=== PATIENT | male | born 1980 | race Caucasian/White ===

== ENCOUNTER 2017-01-06 20:23 | Emergency (ER) | payer OTHER ==
[~2017-01-06] VITALS: Ht 177.8 cm; Wt 63.5 kg
[2017-01-06] MEDS ORDERED: NICOTINE 21MG/24HR 1 EA TRANSDERMAL TD ONE (22:45)
[2017-01-06] MEDS ORDERED: LORazepam 1 MG TAB PO ONE (22:45)
[2017-01-06 23:12] LABS: MEAN CORPUSCULAR HEMOGLOBIN 33.7 pg (27.0-33.0); MEAN CORPUSCULAR HGB CONC 35.1 g/dl (32.0-36.5); MEAN CORPUSCULAR VOLUME 96.1 fl (80.0-96.0); RED CELL DISTRIBUTION WIDTH 12.6 % (11.5-14.5); WHITE BLOOD COUNT 7.8 K/mm3 (4.0-10.0)
[2017-01-06 23:22] LABS: CONTROL LINE INT CTR LINE PRESENT; METHADONE URINE NEGATIVE (NEGATIVE); TRICYCLIC ANTIDEPRESS URINE NEGATIVE (NEGATIVE)
[2017-01-06 23:42] LABS: ALBUMIN 4.4 GM/DL (3.2-5.2); ALBUMIN/GLOBULIN RATIO 1.42 (1.00-1.93); ALKALINE PHOSPHATASE 58 U/L (45-117); ALT/SGPT 18 U/L (12-78); ANION GAP 9 MEQ/L (8-16); AST/SGOT 15 U/L (15-37); BILIRUBIN,DIRECT 0.2 MG/DL (0.0-0.2); BILIRUBIN,TOTAL 0.7 MG/DL (0.2-1.0); BLOOD UREA NITROGEN 12 MG/DL (7-18); CALCIUM LEVEL 9.3 MG/DL (8.5-10.1); CARBON DIOXIDE LEVEL 23 MEQ/L (21-32); CHLORIDE LEVEL 105 MEQ/L (98-107); CREATININE FOR GFR 1.07 MG/DL (0.70-1.30); GLOMERULAR FILTRATION RATE > 60.0 (>60); GLUCOSE, FASTING 106 MG/DL (70-105); POTASSIUM SERUM 3.9 MEQ/L (3.5-5.1); SODIUM LEVEL 137 MEQ/L (136-145); TOTAL PROTEIN 7.5 GM/DL (6.4-8.2)
[2017-01-07 01:45] VITALS: BP 151/105
== END 2017-01-07 02:07 | disposition home or self-care (01) ==
LOC: M ED 21:51
DX: F43.0 Acute stress reaction (principal); F17.210 Nicotine dependence, cigarettes, uncomplicated; M19.90 Unspecified osteoarthritis, unspecified site; F41.9 Anxiety disorder, unspecified; F32.9 Major depressive disorder, single episode, unspecified; F22 Delusional disorders
CPT/HCPCS: 36415; 80048; 80076; 80306; 84443; 85027; 99285; G0480

== ENCOUNTER → 2017-04-16 | Outpatient (CLI) | payer OTHER | LOC: M OUTALCOH 09:25 | PROVIDERS: ATTEND Psychiatry & Neurology Psychiatry | DX: E13.9 Other specified diabetes mellitus without complications (principal); F10.20 Alcohol dependence, uncomplicated; F12.20 Cannabis dependence, uncomplicated ==

== ENCOUNTER → 2017-04-30 | Outpatient (CLI) | payer OTHER | LOC: M OUTALCOH 09:12 | PROVIDERS: ATTEND Psychiatry & Neurology Psychiatry | DX: Z13.9 Encounter for screening, unspecified (principal); F12.20 Cannabis dependence, uncomplicated; F10.20 Alcohol dependence, uncomplicated ==

== ENCOUNTER 2017-05-06 08:00 | Outpatient (RCR) | payer OTHER | END 2017-05-07 | LOC: M OUTALCOH 08:00 | PROVIDERS: ATTEND Psychiatry & Neurology Psychiatry | DX: F10.20 Alcohol dependence, uncomplicated (principal); F12.20 Cannabis dependence, uncomplicated; F17.200 Nicotine dependence, unspecified, uncomplicated ==

== ENCOUNTER → 2017-06-07 | Outpatient (RCR) | payer OTHER ==
[~2017-06-07] MED LIST: FLUO20CA19; NALT50TA4; TIGA300C2 PO; ZYPR15TA
== END ==
LOC: M OUTALCOH 05-13 15:00
PROVIDERS: ATTEND Psychiatry & Neurology Psychiatry
DX: F10.20 Alcohol dependence, uncomplicated (principal); F12.20 Cannabis dependence, uncomplicated; F17.200 Nicotine dependence, unspecified, uncomplicated

== ENCOUNTER 2017-07-01 09:52 | Emergency (ER) | payer OTHER ==
[~2017-07-01] VITALS: Ht 177.8 cm; Wt 77.3 kg
[2017-07-01] MEDS ORDERED: NALT50TA4 (09:59)
[2017-07-01] MEDS ORDERED: FLUO20CA19 (09:59)
[2017-07-01] MEDS ORDERED: ZYPR15TA (09:59)
[2017-07-01] MEDS ORDERED: KETOROLAC 30 MG/ML VIAL (J1885) IV ONE (10:15)
[2017-07-01] MEDS ORDERED: NS 1,000 ML IV ONE (10:15)
[2017-07-01] MEDS ORDERED: TRIMETHOBENZAMIDE HCL INJ 200 MG/2 ML VIAL (J3250) IM ONE (10:15)
[2017-07-01] MEDS ORDERED: diphenhydrAMINE INJ 50MG/ML VIAL (J1200) IV ONE (10:15)
[2017-07-01 10:45] LABS: BASO % 0.3 % (0.0-1.0); EOS % 0.5 % (0.0-3.0); LARGE UNSTAINED CELL # 0.1 K/mm3 (0.0-0.4); LYMPH # 1.4 K/mm3 (1.5-4.5); LYMPH % 13.1 % (24.0-44.0); MEAN CORPUSCULAR HEMOGLOBIN 34.2 pg (27.0-33.0); MEAN CORPUSCULAR HGB CONC 36.2 g/dl (32.0-36.5); MEAN CORPUSCULAR VOLUME 94.7 fl (80.0-96.0); MONO # 0.5 K/mm3 (0.0-0.8); MONO % 4.9 % (0.0-5.0); NEUTROPHILS # 7.9 K/mm3 (1.8-7.7); NEUTROPHILS % 80.1 % (36.0-66.0); PLATELET COUNT, AUTOMATED 244 k/mm3 (150-450); RED CELL DISTRIBUTION WIDTH 13.3 % (11.5-14.5); WHITE BLOOD COUNT 9.9 K/mm3 (4.0-10.0)
[2017-07-01 11:11] LABS: ALBUMIN 4.2 GM/DL (3.2-5.2); ALKALINE PHOSPHATASE 64 U/L (45-117); ALT/SGPT 63 U/L (12-78); AMYLASE 52 U/L (25-115); ANION GAP 10 MEQ/L (8-16); AST/SGOT 36 U/L (15-37); BILIRUBIN,TOTAL 0.3 MG/DL (0.2-1.0); BLOOD UREA NITROGEN 14 MG/DL (7-18); CALCIUM LEVEL 9.3 MG/DL (8.5-10.1); CARBON DIOXIDE LEVEL 22 MEQ/L (21-32); CHLORIDE LEVEL 104 MEQ/L (98-107); CREATININE FOR GFR 0.84 MG/DL (0.70-1.30); GLOMERULAR FILTRATION RATE > 60.0 (>60); GLUCOSE, FASTING 124 MG/DL (70-105); SODIUM LEVEL 136 MEQ/L (136-145); TOTAL PROTEIN 7.7 GM/DL (6.4-8.2)
[2017-07-01] MEDS ORDERED: TIGA300C2 PO (11:27)
[2017-07-01 11:32] VITALS: BP 151/94
== END 2017-07-01 11:39 | disposition home or self-care (01) ==
LOC: M ED 09:52
DX: R51 Headache (principal)
CPT/HCPCS: 80053; 82150; 83690; 85025; 96372; 96374; 96375; 99283; J1200; J1885; J3250

== ENCOUNTER 2017-07-07 08:45 | Outpatient (RCR) | payer OTHER | END 2017-07-08 | LOC: M OUTALCOH 08:45 | PROVIDERS: ATTEND Psychiatry & Neurology Psychiatry | DX: F10.20 Alcohol dependence, uncomplicated (principal); F12.20 Cannabis dependence, uncomplicated; F17.200 Nicotine dependence, unspecified, uncomplicated ==

== ENCOUNTER 2017-08-06 09:00 | Outpatient (RCR) | payer OTHER | END 2017-08-07 | LOC: M OUTALCOH 09:00 | PROVIDERS: ATTEND Psychiatry & Neurology Psychiatry | DX: F10.20 Alcohol dependence, uncomplicated (principal); F12.20 Cannabis dependence, uncomplicated; F17.200 Nicotine dependence, unspecified, uncomplicated ==

== ENCOUNTER 2017-10-06 15:00 | Outpatient (RCR) | payer OTHER | END 2017-10-07 | LOC: M OUTALCOH 15:00 | PROVIDERS: ATTEND Psychiatry & Neurology Psychiatry | DX: F10.20 Alcohol dependence, uncomplicated (principal); F12.20 Cannabis dependence, uncomplicated; F17.200 Nicotine dependence, unspecified, uncomplicated ==

== ENCOUNTER 2017-10-19 16:00 | Outpatient (RCR) | payer OTHER | END 2017-11-07 | LOC: M OUTALCOH 10-28 16:00 | DX: F10.20 Alcohol dependence, uncomplicated (principal); F12.20 Cannabis dependence, uncomplicated; F17.200 Nicotine dependence, unspecified, uncomplicated | CPT/HCPCS: 90834 ==

== ENCOUNTER 2017-12-21 14:24 | Outpatient (RCR) | payer OTHER | END 2018-01-05 | LOC: M OUTALCOH 01-05 15:07 | DX: F10.20 Alcohol dependence, uncomplicated (principal); F12.20 Cannabis dependence, uncomplicated; F17.200 Nicotine dependence, unspecified, uncomplicated | CPT/HCPCS: 90834 ==

== ENCOUNTER 2018-01-06 14:19 | Outpatient (RCR) | payer OTHER | END 2018-02-05 | LOC: M OUTALCOH 14:19 | DX: F10.20 Alcohol dependence, uncomplicated (principal); F12.20 Cannabis dependence, uncomplicated; F17.200 Nicotine dependence, unspecified, uncomplicated | CPT/HCPCS: 90834 ==

== ENCOUNTER 2018-01-11 10:43 | Emergency (ER) | payer OTHER | END 2018-01-11 12:20 | disposition left against medical advice (07) | LOC: M ED 10:43 | DX: F99 Mental disorder, not otherwise specified (principal); Z53.21 Procedure and treatment not carried out due to patient leaving prior to being seen by health care provider ==

== ENCOUNTER 2018-02-09 16:00 | Outpatient (RCR) | payer OTHER | END 2018-03-07 | LOC: M OUTALCOH 02-16 16:00 | DX: F10.20 Alcohol dependence, uncomplicated (principal); F12.20 Cannabis dependence, uncomplicated; F17.200 Nicotine dependence, unspecified, uncomplicated | CPT/HCPCS: 90834 ==

== ENCOUNTER 2018-03-25 15:28 | Outpatient (RCR) | payer OTHER | END 2018-04-07 | LOC: M OUTALCOH 04-01 10:00 | DX: F10.20 Alcohol dependence, uncomplicated (principal); F12.20 Cannabis dependence, uncomplicated; F17.200 Nicotine dependence, unspecified, uncomplicated | CPT/HCPCS: 90834 ==

== ENCOUNTER 2018-04-15 11:05 | Outpatient (RCR) | payer OTHER | END 2018-05-07 | LOC: M OUTALCOH 04-29 10:00 | DX: F10.20 Alcohol dependence, uncomplicated (principal); F12.20 Cannabis dependence, uncomplicated; F17.200 Nicotine dependence, unspecified, uncomplicated | CPT/HCPCS: 90834 ==

== ENCOUNTER 2018-05-13 11:43 | Outpatient (RCR) | payer OTHER | END 2018-06-07 | LOC: M OUTALCOH 05-31 10:00 | DX: F10.20 Alcohol dependence, uncomplicated (principal); F17.200 Nicotine dependence, unspecified, uncomplicated; F12.20 Cannabis dependence, uncomplicated | CPT/HCPCS: 90834 ==

== ENCOUNTER 2018-07-22 10:39 | Outpatient (RCR) | payer OTHER | END 2018-08-07 | LOC: M OUTALCOH 10:39 | DX: F10.20 Alcohol dependence, uncomplicated (principal); F17.200 Nicotine dependence, unspecified, uncomplicated; F12.20 Cannabis dependence, uncomplicated | CPT/HCPCS: 90832 ==

== ENCOUNTER 2018-08-15 14:41 | Outpatient (RCR) | payer OTHER | END 2018-09-07 | LOC: M OUTALCOH 09-02 11:00 | DX: F10.20 Alcohol dependence, uncomplicated (principal); F17.200 Nicotine dependence, unspecified, uncomplicated; F12.20 Cannabis dependence, uncomplicated | CPT/HCPCS: 90834 ==

== ENCOUNTER 2021-04-20 09:49 | Emergency (ER) | payer OTHER ==
[~2021-04-20] VITALS: Ht 177.8 cm; Wt 90.9 kg
[~2021-04-20 09:49] MED LIST changes: -FLUO20CA19; +FLUO20CA22; +LIPI80TA
[2021-04-20] MEDS ORDERED: ZOLO100T PO (09:58)
[2021-04-20] MEDS ORDERED: RISP-11 PO (09:58)
[2021-04-20] MEDS ORDERED: LEVALBUTEROL HFA 45MCG/ACT 15 GM INHALER INH PRN (11:20)
[2021-04-20] MEDS ORDERED: LIDOCAINE 5% (LIDODERM) PATCH TD ONE (11:20)
[2021-04-20] MEDS ORDERED: KETOROLAC 60MG 2ML VIAL IM ONE (11:20)
[2021-04-20] MEDS ORDERED: methocarbamoL 750 MG TAB PO ONE (11:20)
--- NOTE | 2021-04-20 12:27 | REP ---
INDICATION: wheezing. COMPARISON: Comparison chest x-ray June 29, 2009. TECHNIQUE: Two views.. FINDINGS: There is a zone of linear density in the left perihilar region consistent with platelike atelectasis. Lung westfall are otherwise clear. The pleural angles are sharp. Heart size is normal. The pulmonary vasculature is not increased. No acute bony abnormality. IMPRESSION: Platelike atelectasis left perihilar region. Otherwise no active disease. <Electronically signed by Serg Sosa > 04/20/21 [id number]
[2021-04-20] MEDS ORDERED: PERCOCET 5MG/325MG TAB PO ONE (13:05)
[2021-04-20 13:08] LABS: BASO # 0.1 10^3/uL (0.0-0.2); BASO % 0.5 % (0.0-1.0); EOS % 0.2 % (0.0-3.0); HEMATOCRIT 49.1 % (42.0-52.0); HEMOGLOBIN 16.8 g/dl (13.5-17.5); LYMPH # 1.6 10^3/uL (1.5-5.0); LYMPH % 16.9 % (24.0-44.0); MEAN CORPUSCULAR HEMOGLOBIN 34.7 pg (27.0-33.0); MEAN CORPUSCULAR HGB CONC 34.2 g/dl (32.0-36.5); MEAN CORPUSCULAR VOLUME 101.4 fl (80.0-96.0); MONO # 0.8 10^3/uL (0.0-0.8); NEUTROPHILS # 6.8 10^3/uL (1.5-8.5); NEUTROPHILS % 72.8 % (36.0-66.0); PLATELET COUNT, AUTOMATED 194 10^3/uL (150-450); RED BLOOD COUNT 4.84 10^6/uL (4.30-6.10); WHITE BLOOD COUNT 9.4 10^3/uL (4.0-10.0)
[2021-04-20] MEDS ORDERED: ISOVUE-370 76% 100ML VIAL As Ordered ONE (13:26)
[2021-04-20 13:41] VITALS: BP 144/96
--- NOTE | 2021-04-20 14:18 | REP ---
INDICATION: pain with deep breaths/sob. COMPARISON: Comparison is made with today's chest x-ray.. TECHNIQUE: Contrast dose: 75 ML of Isovue [address] technique: Helical scanning is acquired and overlapping 1.5 mm and contiguous 3 mm axial images are reformatted. In addition, maximum intensity projection and multiplanar re-formation images are generated in sagittal and coronal imaging projections. FINDINGS: There is good opacification in the pulmonary arterial tree. There is no evidence of vessel cut off or filling defect to suggest pulmonary embolus. Homogeneous opacity is seen in the thoracic aorta. There is no evidence of aortic dissection. The ascending aorta however is somewhat dilated measuring 4.4 cm in AP dimension at the level of the right main pulmonary artery. Lung window settings demonstrate a band of platelike atelectasis in the left upper lobe. Lung westfall are otherwise clear. There is no evidence of pleural effusion or pericardial effusion. No hilar or mediastinal mass or adenopathy is seen. In the upper abdomen, there is moderate diffuse fatty infiltration of the liver and the liver appears prominent in size although it is not completely included in the imaging field of view. Normal adrenal glands are seen. Spleen does not appear to be enlarged. The visualized upper abdominal structures are otherwise unremarkable. IMPRESSION: No CT evidence of pulmonary embolus. Dilated ascending aorta, 4.4 cm in anteroposterior dimension. Platelike atelectasis left upper lobe. Moderate fatty infiltration of the liver diffusely. Possible hepatomegaly <Electronically signed by Serg Sosa > 04/20/21 [id number]
[2021-04-20 15:18] LABS: CK-MB VALUE MASS < 1.0 NG/ML (<3.6); CPK CREATINE PHOSPHOKINASE 68 U/L (39-308); MB/CK RELATIVE INDEX 1.47 (< OR =4); TROPONIN I < 0.02 NG/ML (< 0.10)
[2021-04-20] MEDS ORDERED: PERC5TAB12 PO (16:08)
[2021-04-20] MEDS ORDERED: METH-1164 PO (16:09)
[2021-04-20] MEDS ORDERED: LIDO5DIS41 TOP (18:46)
[2021-04-20] MEDS ORDERED: **NOTE PATIENT COMMENT** MISC XX ONE (23:00)
--- NOTE | 2021-04-21 14:07 | ED PDOC ---
Post-Departure Follow-Up cta chest faxed to [facility] for fu Javi Gallardo MD Apr 21, 2021 14:07
--- NOTE | 2021-04-21 16:56 | ECGEPIP ---
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
== END 2021-04-20 16:22 | disposition home or self-care (01) ==
LOC: M ED 09:49
DX: I77.819 Aortic ectasia, unspecified site (principal); M54.6 Pain in thoracic spine; R00.2 Palpitations; E78.5 Hyperlipidemia, unspecified; F17.210 Nicotine dependence, cigarettes, uncomplicated; Z79.899 Other long term (current) drug therapy
CPT/HCPCS: 36415; 71046; 71275; 80047; 82550; 82553; 84484; 85025; 85652; 86140; 93005; 94640; 96372; 99284; J1885; Q9967

== ENCOUNTER 2022-07-13 10:59 | Emergency (ER) | payer OTHER ==
[~2022-07-13] VITALS: Ht 177.8 cm; Wt 81.8 kg
[2022-07-13 10:59] VITALS: BP 141/107
[~2022-07-13 10:59] MED LIST changes: +LIDO5DIS41 TOP; +METH-1164 PO; +PERC5TAB12 PO; +RISP-11 PO; +ZOLO100T PO
== END 2022-07-13 11:33 | disposition left against medical advice (07) ==
LOC: M ED 10:59
DX: Z53.29 Procedure and treatment not carried out because of patient's decision for other reasons (principal)

== ENCOUNTER 2022-12-30 20:35 | Inpatient (IN) | payer OTHER ==
[~2022-12-30] VITALS: Ht 177.8 cm; Wt 90.9 kg
[2022-12-30] MEDS ORDERED: diphenhydrAMINE 50MG/ML VIAL As Ordered ONE (20:43)
[2022-12-30] MEDS ORDERED: HALOPERIDOL 5MG/ML 1ML VIAL As Ordered ONE (20:44)
[2022-12-30] MEDS ORDERED: LORazepam 2 MG/ML 1ML VIAL IM STA (20:44)
[2022-12-30] MEDS ORDERED: HALOPERIDOL 5MG/ML 1ML VIAL IM ONE (20:45)
[2022-12-30] MEDS ORDERED: LORazepam 2 MG/ML 1ML VIAL As Ordered ONE (20:45)
[2022-12-30] MEDS ORDERED: diphenhydrAMINE 50MG/ML VIAL IM ONE (20:45)
[2022-12-30 22:04] LABS: HEMATOCRIT 45.7 % (42.0-52.0); HEMOGLOBIN 16.1 g/dl (13.5-17.5); MEAN CORPUSCULAR HEMOGLOBIN 34.1 pg (27.0-33.0); MEAN CORPUSCULAR HGB CONC 35.2 g/dl (32.0-36.5); MEAN CORPUSCULAR VOLUME 96.8 fl (80.0-96.0); PLATELET COUNT, AUTOMATED 255 10^3/uL (150-450); RED BLOOD COUNT 4.72 10^6/uL (4.30-6.10); WHITE BLOOD COUNT 9.7 10^3/uL (4.0-10.0)
[2022-12-30 22:30] LABS: ETHYL ALCOHOL (ETHANOL) 0.249 % (0.000-0.010)
[2022-12-30 22:32] LABS: ALBUMIN 3.9 G/DL (3.2-5.2); ALKALINE PHOSPHATASE 78 U/L (46-116); ALT/SGPT 17 U/L (7.0-40); AST/SGOT 25 U/L (<34); BILIRUBIN,DIRECT 0.1 MG/DL (<0.4); BILIRUBIN,TOTAL 0.5 MG/DL (0.3-1.2); BLOOD UREA NITROGEN 7 MG/DL (9-23); CARBON DIOXIDE LEVEL 22 MMOL/L (20-31); CHLORIDE LEVEL 105 MMOL/L (98-107); CREATININE FOR GFR 0.88 MG/DL (0.70-1.30); GLOMERULAR FILTRATION RATE > 60.0 (>60); GLUCOSE, FASTING 105 MG/DL (60-100); POTASSIUM SERUM 3.8 MMOL/L (3.5-5.1); SALICYLATE LEVEL < 3.0 MG/DL (<30); SODIUM LEVEL 142 MMOL/L (136-145); TOTAL PROTEIN 6.8 G/DL (5.7-8.2)
[2022-12-30 22:33] LABS: ACETAMINOPHEN LEVEL < 2.0 UG/ML (10.0-20.0)
[2022-12-30 22:34] LABS: THYROID STIMULATING HORMONE 6.047 uIU/ML (0.55-4.78)
[2022-12-31] MEDS ORDERED: LORazepam 2 MG/ML 1ML VIAL IM STA (00:30)
[2022-12-31] MEDS ORDERED: HOME MED LIST COMPLETE! XX SCH (06:40)
[2022-12-31 09:33] LABS: AMPHETAMINES LEVEL URINE NEGATIVE (NEGATIVE); BARBITURATES URINE NEGATIVE (NEGATIVE); BENZODIAZEPINES URINE NEGATIVE (NEGATIVE); COCAINE METABOLITE URINE NEGATIVE (NEGATIVE); METHADONE URINE NEGATIVE (NEGATIVE); OPIATES URINE NEGATIVE (NEGATIVE); PHENCYCLIDINE URINE NEGATIVE (NEGATIVE)
[2022-12-31 09:35] LABS: CANNABINOIDS URINE POSITIVE (NEGATIVE)
[2022-12-31] MEDS ORDERED: NICOTINE 21MG/24HR 1 EA TRANSDERMAL TD ONE (12:20)
[2022-12-31] MEDS: NICOTINE 21MG/24HR 1 EA TRANSDERMAL TD SCH (12:50)
[2022-12-31] MEDS ORDERED: IBUPROFEN 400MG TAB PO PRN (13:55)
[2022-12-31] MEDS ORDERED: traZODone 50 MG TAB PO PRN (13:55)
[2022-12-31] MEDS ORDERED: MOM 30ML SUSPENSION UDC PO PRN (13:55)
[2022-12-31] MEDS ORDERED: MAALOX 30 ML SUSP *UDC PO PRN (13:55)
[2022-12-31] MEDS: LORazepam 2 MG TAB PO PRN ×2 (14:10→16:16)
[2022-12-31 16:10] VITALS: BP 170/100
[2022-12-31 16:11] VITALS: BP 170/100
[2022-12-31] MEDS: FOLIC ACID 1MG TAB PO SCH (16:16)
[2022-12-31] MEDS: diphenhydrAMINE 25MG CAP PO PRN (16:16)
[2022-12-31] MEDS: THIAMINE 100 MG TAB PO SCH ×2 (16:17→21:00)
[2022-12-31] MEDS: MULTIVITAMINS/MINERALS THERAP 1 TAB PO SCH (16:17)
[2022-12-31 18:15] VITALS: BP 142/100
[2022-12-31] MEDS ORDERED: ACETAMINOPHEN TAB 650MG DOSE (2X325MG) PO PRN (21:20)
[2023-01-01 05:41] VITALS: BP 142/86
[2023-01-01 05:43] VITALS: BP 142/86
[2023-01-01] MEDS: FOLIC ACID 1MG TAB PO SCH (07:51)
[2023-01-01] MEDS: MULTIVITAMINS/MINERALS THERAP 1 TAB PO SCH (07:51)
[2023-01-01] MEDS: THIAMINE 100 MG TAB PO SCH (07:51)
[2023-01-01] MEDS: NICOTINE 21MG/24HR 1 EA TRANSDERMAL TD SCH (07:53)
[2023-01-01] MEDS: diphenhydrAMINE 25MG CAP PO PRN (07:55)
[2023-01-01] MEDS ORDERED: LORazepam 1 MG TAB PO STA (08:50)
== END 2023-01-01 12:30 | disposition home or self-care (01) | DRG 882 ==
LOC: M ED 20:35 → M ED INP 12-31 13:52 → M PSY 12-31 15:16
PROVIDERS: ADMIT Psychiatry & Neurology Psychiatry; ATTEND Psychiatry & Neurology Psychiatry
DX: F43.10 Post-traumatic stress disorder, unspecified (principal); F10.24 Alcohol dependence with alcohol-induced mood disorder; R45.851 Suicidal ideations; F10.220 Alcohol dependence with intoxication, uncomplicated; F17.290 Nicotine dependence, other tobacco product, uncomplicated; M25.531 Pain in right wrist; Z78.1 Physical restraint status; Z81.1 Family history of alcohol abuse and dependence; Z20.822 Contact with and (suspected) exposure to COVID-19; Z91.82 Personal history of military deployment

== ENCOUNTER → 2023-02-11 | Outpatient (REF) | payer OTHER | LOC: M LAB REF 16:16 | PROVIDERS: ATTEND Nurse Practitioner Family | DX: J02.9 Acute pharyngitis, unspecified (principal) ==

== ENCOUNTER 2024-05-27 13:57 | Emergency (ER) | payer OTHER ==
[~2024-05-27] VITALS: Ht 177.8 cm; Wt 73.4 kg
[~2024-05-27 13:57] MED LIST changes: +FLUO-365; -FLUO20CA22; -RISP-11 PO; +RISP4TAB95 PO
[2024-05-27 16:46] LABS: BASO # 0.1 10^3/uL (0.0-0.2); BASO % 0.8 % (0.0-1.0); EOS % 0.5 % (0.0-3.0); HEMOGLOBIN 15.3 g/dl (13.5-17.5); LYMPH # 2.1 10^3/uL (1.5-5.0); LYMPH % 31.7 % (24.0-44.0); MEAN CORPUSCULAR HEMOGLOBIN 33.2 pg (27.0-33.0); MEAN CORPUSCULAR HGB CONC 34.8 g/dl (32.0-36.5); MEAN CORPUSCULAR VOLUME 95.4 fl (80.0-96.0); MONO # 0.8 10^3/uL (0.0-0.8); MONO % 12.1 % (2.0-8.0); NEUTROPHILS # 3.5 10^3/uL (1.5-8.5); NEUTROPHILS % 54.6 % (36.0-66.0); PLATELET COUNT, AUTOMATED 233 10^3/uL (150-450); RED BLOOD COUNT 4.61 10^6/uL (4.30-6.10); WHITE BLOOD COUNT 6.5 10^3/uL (4.0-10.0)
[2024-05-27 17:38] LABS: CK-MB VALUE MASS 1.8 NG/ML (<3.6)
[2024-05-27 17:41] LABS: BLOOD UREA NITROGEN 14 MG/DL (9-23); CALCIUM LEVEL 9.3 MG/DL (8.5-10.1); CARBON DIOXIDE LEVEL 27 MMOL/L (20-31); CHLORIDE LEVEL 107 MMOL/L (98-107); CREATININE FOR GFR 0.96 MG/DL (0.70-1.30); GLOMERULAR FILTRATION RATE > 60.0 (>60); GLUCOSE, FASTING 96 MG/DL (60-100); POTASSIUM SERUM 3.9 MMOL/L (3.5-5.1); SODIUM LEVEL 141 MMOL/L (136-145)
[2024-05-27 17:42] LABS: THYROID STIMULATING HORMONE 1.059 uIU/ML (0.55-4.78)
[2024-05-27 17:43] LABS: FREE T4 1.16 NG/DL (0.89-1.76)
[2024-05-27 17:46] LABS: CPK CREATINE PHOSPHOKINASE 170 U/L (46-171); MB/CK RELATIVE INDEX 1.05 (< OR =4)
[2024-05-27 18:40] LABS: CK-MB VALUE MASS 1.6 NG/ML (<3.6)
[2024-05-27 18:56] LABS: MB/CK RELATIVE INDEX 1.01 (< OR =4)
[2024-05-27] MEDS ORDERED: HOLTER MONITOR XX (19:52)
[2024-05-27] MEDS: DOXYCYCLINE HYCLATE 100MG TABLET PO ONE (20:01)
[2024-05-27 20:05] VITALS: BP 134/82; TEMP 98.3; O2SAT 98
[2024-06-01 21:58] LABS: LYME TOTAL ANTIBODY CIA <= 0.90 Index (<=0.90)
== END 2024-05-27 20:07 | disposition home or self-care (01) ==
LOC: M ED 13:57
DX: R00.2 Palpitations (principal); S50.861A Insect bite (nonvenomous) of right forearm, initial encounter; W57.XXXA Bitten or stung by nonvenomous insect and other nonvenomous arthropods, initial encounter; Y92.89 Other specified places as the place of occurrence of the external cause; Y93.89 Activity, other specified; Y99.8 Other external cause status; K12.30 Oral mucositis (ulcerative), unspecified; Z88.8 Allergy status to other drugs, medicaments and biological substances

== ENCOUNTER → 2024-07-06 | Outpatient (CLI) | payer OTHER ==
[~2024-07-06] MED LIST changes: +HOLTER MONITOR XX
== END ==
LOC: M PLAIMG 09:17
PROVIDERS: ATTEND Physician Assistant
DX: S52.352A Displaced comminuted fracture of shaft of radius, left arm, initial encounter for closed fracture (principal); Y93.9 Activity, unspecified; Y92.9 Unspecified place or not applicable

== ENCOUNTER 2024-12-21 16:19 | Inpatient (IN) | payer OTHER ==
[~2024-12-21 16:19] MED LIST changes: +ATOR-398; -LIPI80TA
[2024-12-21] MEDS: HALOPERIDOL LACTATE 5MG/ML VIAL IM ONE (16:50)
[2024-12-21] MEDS: diphenhydrAMINE 50MG/ML VIAL IM ONE (16:51)
[2024-12-21] MEDS: LORazepam 2 MG/ML 1ML VIAL IM ONE (16:51)
[2024-12-21 17:34] LABS: HEMATOCRIT 42.7 % (42.0-52.0); HEMOGLOBIN 15.1 g/dl (13.5-17.5); MEAN CORPUSCULAR HEMOGLOBIN 33.6 pg (27.0-33.0); MEAN CORPUSCULAR HGB CONC 35.4 g/dl (32.0-36.5); MEAN CORPUSCULAR VOLUME 95.1 fl (80.0-96.0); PLATELET COUNT, AUTOMATED 355 10^3/uL (150-450); RED BLOOD COUNT 4.49 10^6/uL (4.30-6.10); WHITE BLOOD COUNT 6.3 10^3/uL (4.0-10.0)
[2024-12-21 18:06] LABS: ETHYL ALCOHOL (ETHANOL) 0.122 % (0.000-0.010)
[2024-12-21 18:07] LABS: ALBUMIN 3.5 G/DL (3.2-5.2); ALKALINE PHOSPHATASE 73 U/L (40-129); ALT/SGPT 28 U/L (7.0-40); AST/SGOT 26 U/L (<34); BILIRUBIN,DIRECT 0.2 MG/DL (<0.4); BILIRUBIN,TOTAL 0.4 MG/DL (0.3-1.2); BLOOD UREA NITROGEN 6 MG/DL (9-23); CALCIUM LEVEL 9.1 MG/DL (8.5-10.1); CARBON DIOXIDE LEVEL 20 MMOL/L (20-31); CHLORIDE LEVEL 107 MMOL/L (98-107); GLOMERULAR FILTRATION RATE > 60.0 (>60); GLUCOSE, FASTING 102 MG/DL (60-100); POTASSIUM SERUM 4.3 MMOL/L (3.5-5.1); SALICYLATE LEVEL < 3.0 MG/DL (<30); SODIUM LEVEL 141 MMOL/L (136-145); TOTAL PROTEIN 6.8 G/DL (5.7-8.2)
[2024-12-21 18:10] LABS: THYROID STIMULATING HORMONE 1.258 uIU/ML (0.55-4.78)
[2024-12-21 18:50] LABS: AMPHETAMINES LEVEL URINE NEGATIVE (NEGATIVE)
[2024-12-21 18:51] LABS: BARBITURATES URINE NEGATIVE (NEGATIVE); BENZODIAZEPINES URINE NEGATIVE (NEGATIVE); CANNABINOIDS URINE NEGATIVE (NEGATIVE); COCAINE METABOLITE URINE NEGATIVE (NEGATIVE); METHADONE URINE NEGATIVE (NEGATIVE); OPIATES URINE NEGATIVE (NEGATIVE); PHENCYCLIDINE URINE NEGATIVE (NEGATIVE)
[2024-12-21] MEDS ORDERED: LORazepam 2 MG TAB PO PRN (19:05)
[2024-12-21] MEDS: THIAMINE 100 MG TAB PO SCH (20:29)
[2024-12-21] MEDS: IBUPROFEN 600MG TAB PO ONE (20:30)
[2024-12-22] MEDS ORDERED: HOME MED LIST COMPLETE! XX SCH (07:15)
[2024-12-22 11:17] VITALS: BP 138/96; TEMP 97.5; O2SAT 96
[2024-12-22] MEDS: MULTIVITAMINS/MINERALS THERAP 1 TAB PO SCH (11:44)
[2024-12-22] MEDS: FOLIC ACID 1MG TAB PO SCH (11:44)
[2024-12-22] MEDS: NICOTINE 21MG/24HR 1 EA TRANSDERMAL TD SCH (12:04)
[2024-12-22] MEDS ORDERED: OLANZapine ORAL DISINTEGRATING TAB 5MG PO PRN (12:40)
[2024-12-22] MEDS ORDERED: MAALOX 30 ML SUSP *UDC PO PRN (12:40)
[2024-12-22] MEDS ORDERED: ACETAMINOPHEN 325 MG TAB PO PRN (12:40)
[2024-12-22] MEDS ORDERED: MOM 30ML SUSPENSION UDC PO PRN (12:40)
[2024-12-22] MEDS: diphenhydrAMINE 25MG CAP PO PRN (13:34)
[2024-12-22 16:42] VITALS: BP 136/83; TEMP 98.3; O2SAT 98
[2024-12-22 17:08] VITALS: BP 136/83
[2024-12-22 18:52] VITALS: BP 160/107
[2024-12-22] MEDS: LORazepam 2 MG TAB PO PRN (19:04)
[2024-12-22 21:00] VITALS: BP 133/77; TEMP 98.1; O2SAT 99
[2024-12-22] MEDS: THIAMINE 100 MG TAB PO SCH (21:00)
[2024-12-22] MEDS: traZODone 50 MG TAB PO PRN (21:16)
[2024-12-22] MEDS: CEPACOL LOZENGE PO PRN (21:16)
[2024-12-22] MEDS: IBUPROFEN 400MG TAB PO PRN (22:17)
[2024-12-22 23:19] VITALS: BP 145/95
[2024-12-23] MEDS ORDERED: UNRESOLVED CLARIFICATION ENTRY XX SCH (00:01)
[2024-12-23 05:00] VITALS: BP 120/75; TEMP 97.4; O2SAT 98
[2024-12-23] MEDS: FOLIC ACID 1MG TAB PO SCH (08:03)
[2024-12-23] MEDS: MULTIVITAMINS/MINERALS THERAP 1 TAB PO SCH (08:03)
[2024-12-23 08:50] VITALS: BP 144/90; TEMP 97.8; O2SAT 97
[2024-12-23 15:25] VITALS: BP 154/102
[2024-12-23 15:32] VITALS: TEMP 98.4; O2SAT 100
[2024-12-23] MEDS: amLODIPine 5 MG TAB PO SCH (15:49)
[2024-12-23 21:00] VITALS: BP 156/92
[2024-12-24 06:00] VITALS: BP 121/83
[2024-12-24 06:39] VITALS: TEMP 96.6; O2SAT 99
[2024-12-24 09:03] VITALS: BP 148/98
[2024-12-24 09:29] LABS: CHOLESTEROL RISK RATIO 2.18 (<5); HDL CHOLESTEROL 100.4 MG/DL (>40); LDL CHOLESTEROL 77.2 MG/DL (<100); NON-HDL-C 118.6 MG/DL
[2024-12-24 10:54] VITALS: BP 156/102; TEMP 97.9; O2SAT 97
[2024-12-24 16:11] VITALS: BP 146/98; TEMP 98; O2SAT 95
[2024-12-24 16:30] VITALS: BP 138/96; TEMP 97.4; O2SAT 98
[2024-12-25] MEDS: OLANZapine 5 MG TAB PO SCH (09:00)
[2024-12-27 15:16] VITALS: BP 150/90; TEMP 98.3; O2SAT 98
== END 2024-12-28 10:50 | disposition home or self-care (01) | DRG 885 ==
LOC: M ED 16:19 → M ED INP 12-22 10:14 → M PSY 12-22 11:07
PROVIDERS: ADMIT Psychiatry & Neurology Psychiatry; ATTEND Psychiatry & Neurology Psychiatry
DX: F29 Unspecified psychosis not due to a substance or known physiological condition (principal); F41.1 Generalized anxiety disorder; F43.10 Post-traumatic stress disorder, unspecified; G47.00 Insomnia, unspecified; E78.5 Hyperlipidemia, unspecified; F10.10 Alcohol abuse, uncomplicated; I10 Essential (primary) hypertension; Z91.51 Personal history of suicidal behavior; Z62.810 Personal history of physical and sexual abuse in childhood; Z88.8 Allergy status to other drugs, medicaments and biological substances

== ENCOUNTER 2025-08-10 12:19 | Emergency (ER) | payer OTHER ==
[~2025-08-10 12:19] MED LIST changes: +LIDO1ADH93 TOP; -LIDO5DIS41 TOP
[2025-08-10 12:55] VITALS: TEMP 98.5
[2025-08-10 12:59] LABS: BASO # 0.1 10^3/uL (0.0-0.2); BASO % 1.4 % (0.0-1.0); EOS # 0.0 10^3/uL (0.0-0.5); EOS % 0.2 % (0.0-3.0); LYMPH # 1.2 10^3/uL (1.5-5.0); LYMPH % 21.5 % (24.0-44.0); MONO # 0.8 10^3/uL (0.0-0.8); MONO % 13.6 % (2.0-8.0); NEUTROPHILS # 3.5 10^3/uL (1.5-8.5); NEUTROPHILS % 63.1 % (36.0-66.0); PLATELET COUNT, AUTOMATED 354 10^3/uL (150-450)
[2025-08-10 13:16] LABS: ALT/SGPT 99 U/L (7.0-40); AST/SGOT 76 U/L (<34); CALCIUM LEVEL 9.0 MG/DL (8.5-10.1); CARBON DIOXIDE LEVEL 24 MMOL/L (20-31); CHLORIDE LEVEL 100 MMOL/L (98-107); CREATININE FOR GFR 0.73 MG/DL (0.70-1.30); GLOMERULAR FILTRATION RATE > 90.0 (>60); POTASSIUM SERUM 4.0 MMOL/L (3.5-5.1); SALICYLATE LEVEL < 3.0 MG/DL (<30); SODIUM LEVEL 139 MMOL/L (136-145)
[2025-08-10 13:18] LABS: ETHYL ALCOHOL (ETHANOL) 0.142 % (0.000-0.010)
[2025-08-10 13:25] LABS: AMPHETAMINES LEVEL URINE NEGATIVE (NEGATIVE); BARBITURATES URINE NEGATIVE (NEGATIVE)
[2025-08-10] MEDS: MULTIVITAMINS/MINERALS THERAP 1 TAB PO SCH (13:25)
[2025-08-10 13:26] LABS: BENZODIAZEPINES URINE POSITIVE (NEGATIVE); CANNABINOIDS URINE POSITIVE (NEGATIVE); COCAINE METABOLITE URINE NEGATIVE (NEGATIVE); METHADONE URINE NEGATIVE (NEGATIVE); OPIATES URINE NEGATIVE (NEGATIVE); PHENCYCLIDINE URINE NEGATIVE (NEGATIVE)
[2025-08-10] MEDS: THIAMINE 100 MG TAB PO SCH (13:26)
[2025-08-10] MEDS: FOLIC ACID 1 MG TAB PO SCH (13:26)
[2025-08-10 14:00] LABS: MAGNESIUM LEVEL 1.8 MG/DL (1.8-2.4)
[2025-08-10] MEDS ORDERED: HOME MED LIST COMPLETE! XX SCH (16:05)
[2025-08-10] MEDS ORDERED: FOLI1TAB11 PO (16:05)
[2025-08-10] MEDS ORDERED: MULTTAB61 PO (16:05)
[2025-08-10] MEDS ORDERED: MAGN400T2 PO (16:05)
[2025-08-10] MEDS: NS (Normal Saline) 0.9% 1,000 ML IV SCH (16:30)
[2025-08-10 17:45] VITALS: BP 143/90; O2SAT 95
== END 2025-08-10 17:51 | disposition short-term general hospital (02) ==
LOC: M ED 12:19 → EDBD 12:19 → M ED 17:51
DX: F10.130 Alcohol abuse with withdrawal, uncomplicated (principal); I10 Essential (primary) hypertension; E78.5 Hyperlipidemia, unspecified; F41.9 Anxiety disorder, unspecified; F32.9 Major depressive disorder, single episode, unspecified; F43.10 Post-traumatic stress disorder, unspecified; Z88.8 Allergy status to other drugs, medicaments and biological substances
CPT/HCPCS: 70450; 70486; 72125; 80053; 80143; 80307; 82077; 83735; 85025; 93005; 96361; 96374; 99285; J2060

== ENCOUNTER 2025-08-29 17:09 | Inpatient (IN) | payer OTHER ==
[~2025-08-29] VITALS: Ht 172.7 cm; Wt 75.5 kg
[~2025-08-29 17:09] MED LIST changes: +FOLI1TAB11 PO; +MAGN400T2 PO; +MULTTAB61 PO
[2025-08-29] MEDS ORDERED: HYDR50TA70 PO (17:22)
[2025-08-29] MEDS ORDERED: GABA-284 PO (17:22)
[2025-08-29] MEDS ORDERED: THIA100TA PO (17:22)
[2025-08-29] MEDS: THIAMINE 100 MG TAB PO SCH (19:45)
[2025-08-29] MEDS ORDERED: FOLI400T13 PO (20:51)
[2025-08-29] MEDS ORDERED: GABA-1172 PO (20:51)
[2025-08-29] MEDS ORDERED: HOME MED LIST COMPLETE! XX SCH (20:55)
[2025-08-29 21:12] LABS: BASO # 0.1 10^3/uL (0.0-0.2); BASO % 1.0 % (0.0-1.0); EOS # 0.1 10^3/uL (0.0-0.5); EOS % 1.5 % (0.0-3.0); LYMPH # 1.8 10^3/uL (1.5-5.0); LYMPH % 35.0 % (24.0-44.0); MONO # 0.6 10^3/uL (0.0-0.8); MONO % 10.6 % (2.0-8.0); NEUTROPHILS # 2.7 10^3/uL (1.5-8.5); NEUTROPHILS % 51.5 % (36.0-66.0); PLATELET COUNT, AUTOMATED 181 10^3/uL (150-450)
[2025-08-29 21:48] LABS: ALT/SGPT 48 U/L (7.0-40); AST/SGOT 55 U/L (<34); CALCIUM LEVEL 8.7 MG/DL (8.5-10.1); CARBON DIOXIDE LEVEL 21 MMOL/L (20-31); CHLORIDE LEVEL 104 MMOL/L (98-107); CREATININE FOR GFR 0.71 MG/DL (0.70-1.30); GLOMERULAR FILTRATION RATE > 90.0 (>60); MAGNESIUM LEVEL 1.7 MG/DL (1.8-2.4); POTASSIUM SERUM 3.5 MMOL/L (3.5-5.1); SODIUM LEVEL 140 MMOL/L (136-145)
[2025-08-29] MEDS: LR 1,000 ML IV SCH (22:46)
[2025-08-29] MEDS: MAG SULF 1GM/100ML (MAG RUN) 1 GM in IV 1 EA IV SCH (22:46)
[2025-08-29 23:15] VITALS: BP 146/82; O2SAT 93
[2025-08-29 23:28] VITALS: BP 145/94; TEMP 98.4; O2SAT 91
[2025-08-30] VITALS (8 sets, daily range): BP systolic 117–140; BP diastolic 76–101; TEMP 97–98.7; O2SAT 93–98
[2025-08-30 06:53] LABS: BASO # 0.1 10^3/uL (0.0-0.2); BASO % 1.1 % (0.0-1.0); EOS # 0.1 10^3/uL (0.0-0.5); EOS % 1.8 % (0.0-3.0); LYMPH # 1.5 10^3/uL (1.5-5.0); LYMPH % 27.2 % (24.0-44.0); MONO # 0.6 10^3/uL (0.0-0.8); MONO % 11.2 % (2.0-8.0); NEUTROPHILS # 3.3 10^3/uL (1.5-8.5); NEUTROPHILS % 58.3 % (36.0-66.0); PLATELET COUNT, AUTOMATED 176 10^3/uL (150-450)
[2025-08-30 07:28] LABS: ALT/SGPT 46 U/L (7.0-40); AST/SGOT 48 U/L (<34); CALCIUM LEVEL 8.6 MG/DL (8.5-10.1); CARBON DIOXIDE LEVEL 27 MMOL/L (20-31); CHLORIDE LEVEL 104 MMOL/L (98-107); CREATININE FOR GFR 0.81 MG/DL (0.70-1.30); GLOMERULAR FILTRATION RATE > 90.0 (>60); MAGNESIUM LEVEL 2.1 MG/DL (1.8-2.4); POTASSIUM SERUM 3.4 MMOL/L (3.5-5.1); SODIUM LEVEL 142 MMOL/L (136-145)
[2025-08-30] MEDS: PANTOPRAZOLE 40MG VIAL IV SCH (09:00)
[2025-08-30] MEDS: ENOXAPARIN 40 MG/0.4 ML SYRINGE (J1650 PER 10MG) SC SCH (09:00)
[2025-08-30] MEDS: FOLIC ACID 1 MG TAB PO SCH (09:30)
[2025-08-30] MEDS: MULTIVITAMINS/MINERALS THERAP 1 TAB PO SCH (09:31)
[2025-08-30] MEDS: POTASSIUM CHLORIDE 10MEQ SR TABLET PO ONE (10:10)
[2025-08-30] MEDS: GABAPENTIN 300 MG CAP PO PRN (17:06)
[2025-08-30] MEDS: MAGNESIUM OXIDE 400 MG TAB PO SCH (17:06)
[2025-08-30] MEDS: THIAMINE 100 MG TAB PO SCH (21:09)
[2025-08-31] VITALS (13 sets, daily range): BP systolic 125–154; BP diastolic 83–102; TEMP 97–98.2; O2SAT 94–98
[2025-08-31] MEDS: ACETAMINOPHEN 325 MG TAB PO PRN (00:03)
[2025-08-31] MEDS: LOPERAMIDE 2 MG CAPLET PO ONE (05:04)
[2025-08-31 05:58] LABS: BASO # 0.1 10^3/uL (0.0-0.2); BASO % 1.1 % (0.0-1.0); EOS # 0.1 10^3/uL (0.0-0.5); EOS % 3.0 % (0.0-3.0); LYMPH # 1.7 10^3/uL (1.5-5.0); LYMPH % 40.0 % (24.0-44.0); MONO # 0.4 10^3/uL (0.0-0.8); MONO % 9.9 % (2.0-8.0); NEUTROPHILS # 2.0 10^3/uL (1.5-8.5); NEUTROPHILS % 45.8 % (36.0-66.0); PLATELET COUNT, AUTOMATED 169 10^3/uL (150-450)
[2025-08-31 06:27] LABS: ALT/SGPT 45 U/L (7.0-40); AST/SGOT 41 U/L (<34); CALCIUM LEVEL 9.4 MG/DL (8.5-10.1); CARBON DIOXIDE LEVEL 26 MMOL/L (20-31); CHLORIDE LEVEL 103 MMOL/L (98-107); CREATININE FOR GFR 0.98 MG/DL (0.70-1.30); GLOMERULAR FILTRATION RATE > 90.0 (>60); MAGNESIUM LEVEL 1.8 MG/DL (1.8-2.4); POTASSIUM SERUM 3.5 MMOL/L (3.5-5.1); SODIUM LEVEL 140 MMOL/L (136-145)
[2025-08-31] MEDS: FOLIC ACID 1 MG TAB PO SCH (09:43)
[2025-08-31] MEDS: MULTIVITAMINS/MINERALS THERAP 1 TAB PO SCH (09:45)
[2025-09-01 04:20] VITALS: BP 122/94; TEMP 97.7; O2SAT 99
[2025-09-01 06:14] LABS: BASO # 0.1 10^3/uL (0.0-0.2); BASO % 1.0 % (0.0-1.0); EOS # 0.2 10^3/uL (0.0-0.5); EOS % 3.5 % (0.0-3.0); LYMPH # 2.1 10^3/uL (1.5-5.0); LYMPH % 42.6 % (24.0-44.0); MONO # 0.6 10^3/uL (0.0-0.8); MONO % 12.4 % (2.0-8.0); NEUTROPHILS # 1.9 10^3/uL (1.5-8.5); NEUTROPHILS % 40.1 % (36.0-66.0); PLATELET COUNT, AUTOMATED 161 10^3/uL (150-450)
[2025-09-01 06:34] LABS: ALT/SGPT 43 U/L (7.0-40); AST/SGOT 36 U/L (<34); CALCIUM LEVEL 9.5 MG/DL (8.5-10.1); CARBON DIOXIDE LEVEL 28 MMOL/L (20-31); CHLORIDE LEVEL 108 MMOL/L (98-107); CREATININE FOR GFR 0.90 MG/DL (0.70-1.30); GLOMERULAR FILTRATION RATE > 90.0 (>60); MAGNESIUM LEVEL 1.8 MG/DL (1.8-2.4); POTASSIUM SERUM 4.4 MMOL/L (3.5-5.1); SODIUM LEVEL 144 MMOL/L (136-145)
[2025-09-01 08:12] VITALS: BP 128/86; TEMP 97.5; O2SAT 99
== END 2025-09-01 09:56 | disposition home or self-care (01) | DRG 898 ==
LOC: M ED 17:09 → M ED INP 17:10 → M PCU 08-30 14:31 → OBSVTOIN 08-30 15:55 → M PCU 08-31 13:00
PROVIDERS: ADMIT Student in an Organized Health Care Education/Training Program; ATTEND Student in an Organized Health Care Education/Training Program
DX: F10.239 Alcohol dependence with withdrawal, unspecified (principal); F41.9 Anxiety disorder, unspecified; F32.A Depression, unspecified; I10 Essential (primary) hypertension; F43.10 Post-traumatic stress disorder, unspecified; F17.290 Nicotine dependence, other tobacco product, uncomplicated; Z79.899 Other long term (current) drug therapy; Z88.8 Allergy status to other drugs, medicaments and biological substances; R19.7 Diarrhea, unspecified